=== PATIENT | male | born 1940 | race Caucasian/White ===

== ENCOUNTER 2024-05-29 17:18 | Observation (INO) | payer OTHER ==
[~2024-05-29] VITALS: Ht 177.8 cm; Wt 91.0 kg
[~2024-05-29 17:18] MED LIST: ALDACTONE 25MG25 M1 PO; ALLFEN400 MG PO; COLCRYS0.6 MG PO; DOXYCYCLINE 10100 MG PO; ENTRESTO 97 MG1 EACH PO; IMDUR 60MG60 MG/TAB PO; LASIX 40MG TABL40 MG PO; PREDNISONE20 MG PO; PROAIR DIGIHAL90 MCG IH; SALONPAS1 EACH TP; SPIRIVA RE2.5 MCG/Ac IH; TOPROL XL200 MG PO
[2024-05-29 18:20] LABS: BASO % 0.3 % (0.0-2.0); EOS # 0.1 K/mm3 (0.0-0.7); EOS % 0.7 % (0.0-4.0); GRAN # 11.7 K/mm3 (1.4-6.5); GRAN % 83.5 % (42.2-75.2); HEMATOCRIT 41.5 % (42.0-52.0); HEMOGLOBIN 13.9 g/dl (13.5-18.0); LYMPH # 1.2 K/mm3 (1.2-3.4); LYMPH % 8.8 % (20.0-51.0); MEAN CELL VOLUME 89 fl (80.0-100.0); MEAN CORPUSCULAR HEMOGLOBIN 30 pg (27-31); MEAN CORPUSCULAR HGB CONC 34 g/dl (33.0-37.0); MEAN PLATELET VOLUME 10.4 fl (7.4-10.4); MONO # 0.9 K/mm3 (0.1-0.6); MONO % 6.3 % (1.7-9.3); PLATELET COUNT 165 K/mm3 (130-400); RED BLOOD COUNT 4.65 M/mm3 (4.20-5.60)
[2024-05-29 18:38] LABS: ALBUMIN 3.2 g/dL (3.4-4.8); BILIRUBIN,TOTAL 1.2 mg/dL (0.2-1.2); CALCIUM 8.4 mg/dL (8.4-10.2); CREATININE, serum 1.89 mg/dL (0.72-1.25); POTASSIUM 3.8 mEq/L (3.5-4.5); TOTAL PROTEIN 6.3 g/dl (6.2-8.1)
[2024-05-29] MEDS ORDERED: VITAMIN D31000 IU PO (19:33)
[2024-05-29] MEDS ORDERED: PROSCAR 5MG5 MG PO (19:33)
[2024-05-29] MEDS ORDERED: RT ADVAIR 228 DISKUS IH (19:34)
[2024-05-29] MEDS ORDERED: ANTIVERT 12.512.5 MG PO (19:35)
[2024-05-29] MEDS ORDERED: FLONASEALLERGY NS (19:35)
[2024-05-29] MEDS ORDERED: MELATIN 3 MG-11 TAB PO (19:36)
[2024-05-29] MEDS ORDERED: SINGULAIR 110 MG/TAB PO (19:36)
[2024-05-29] MEDS ORDERED: FLOMAX 0.40.4 MG/CAP PO (19:37)
[2024-05-29] MEDS ORDERED: NORVASC 10MG10 MG PO (19:37)
[2024-05-29] MEDS ORDERED: BREZTRI AEROS10.7 GM IH (19:37)
[2024-05-29] MEDS ORDERED: ASPIRIN E.C. 8181 MG PO (19:38)
[2024-05-29] MEDS ORDERED: LIPITOR 40MG TA40 MG PO (19:39)
[2024-05-29] MEDS ORDERED: LIPITOR20 MG PO (19:39)
[2024-05-29] MEDS ORDERED: ELIQUIS 5MG PO (19:39)
[2024-05-29] MEDS ORDERED: cefTRIAXone 1 G in Water For Injection,Sterile 10 ML IV ONE (19:45)
[2024-05-29] MEDS ORDERED: Furosemide 40 MG/4 ML VIAL IV ONE ×2 (20:00→20:30)
[2024-05-29] MEDS ORDERED: Azithromycin 250 MG TAB PO SCH (20:30)
[2024-05-29] MEDS ORDERED: Albuterol/Ipratropium 3 MG-0.5 MG/3 ML Neb Soln IH PRN (20:30)
[2024-05-29] MEDS ORDERED: cefTRIAXone 1 G in Water For Injection,Sterile 10 ML IV SCH (20:30)
[2024-05-29 20:55] LABS: INR 1.7 (0.8-3.0); PROTHROMBIN TIME 18.4 SECONDS (9.7-12.8)
[2024-05-29 21:00] LABS: C-REACTIVE PROTEIN 8.85 mg/dL (0.00-0.50); MAGNESIUM 2.1 mg/dL (1.6-2.6); PHOSPHOROUS 2.6 mg/dL (2.3-4.7)
[2024-05-29] MEDS ORDERED: Furosemide 40 MG/4 ML VIAL IV SCH (21:00)
[2024-05-29 21:07] LABS: TROPONIN-I 0.035 ng/mL (0.00-0.033)
[2024-05-29 21:20] LABS: THYROID STIMULATING HORMONE 2.473 uIU/mL (0.350-4.940)
[2024-05-30] VITALS (7 sets, daily range): BP systolic 94–137; BP diastolic 55–83; PULSE 61–82; TEMP 97.6–98.7
[2024-05-30] MEDS ORDERED: Albuterol/Ipratropium 3 MG-0.5 MG/3 ML Neb Soln IH SCH (02:00)
[2024-05-30 02:17] LABS: URINE APPEARANCE CLEAR (CLEAR/HAZY); URINE BLOOD NEGATIVE (NEGATIVE); URINE COLOR YELLOW (YELLOW); URINE GLUCOSE 2+ (NEGATIVE); URINE KETONE NEGATIVE (NEGATIVE); URINE NITRATE NEGATIVE (NEGATIVE); URINE PROTEIN(semi-quant) NEGATIVE (NEGATIVE); URINE UROBILINOGEN 0.2 E.U/dL (0.2-1.0)
[2024-05-30 02:30] LABS: COLLECTION METHOD CLEAN CATCH
[2024-05-30 03:34] LABS: BASO % 0.3 % (0.0-2.0); EOS # 0.1 K/mm3 (0.0-0.7); EOS % 0.8 % (0.0-4.0); GRAN # 9.4 K/mm3 (1.4-6.5); GRAN % 79.9 % (42.2-75.2); HEMATOCRIT 39.6 % (42.0-52.0); HEMOGLOBIN 13.8 g/dl (13.5-18.0); LYMPH # 1.6 K/mm3 (1.2-3.4); LYMPH % 13.3 % (20.0-51.0); MEAN CELL VOLUME 86 fl (80.0-100.0); MEAN CORPUSCULAR HEMOGLOBIN 30 pg (27-31); MEAN CORPUSCULAR HGB CONC 35 g/dl (33.0-37.0); MEAN PLATELET VOLUME 10.8 fl (7.4-10.4); MONO # 0.6 K/mm3 (0.1-0.6); MONO % 5.4 % (1.7-9.3); PLATELET COUNT 162 K/mm3 (130-400); RED BLOOD COUNT 4.62 M/mm3 (4.20-5.60); REDCELL DISTRIBUTION WIDTH-CV 14.1 % (11.5-14.5)
[2024-05-30 03:51] LABS: TROPONIN-I 0.041 ng/mL (0.00-0.033)
[2024-05-30 03:57] LABS: CALCIUM 8.9 mg/dL (8.4-10.2); CHOLESTEROL RISK RATIO 3.3; CREATININE, serum 1.67 mg/dL (0.72-1.25); POTASSIUM 3.9 mEq/L (3.5-4.5)
[2024-05-30] MEDS ORDERED: guaiFENesin Oral Soln 200 MG/10 ML UD PO SCH (04:36)
[2024-05-30] MEDS ORDERED: Atorvastatin 40 MG TAB PO SCH (04:38)
[2024-05-30] MEDS ORDERED: Lidocaine 4% Topical Patch TP PRN (04:45)
[2024-05-30] MEDS ORDERED: Benzonatate 100 MG CAP PO SCH (04:51)
[2024-05-30] MEDS ORDERED: methylPREDNISolone Sod Succ 125 MG/2 ML VIAL IV SCH (05:00)
[2024-05-30] MEDS ORDERED: guaiFENesin/Dextromethorphan Oral Soln 200-20 MG/10 ML UD PO PRN (05:00)
[2024-05-30] MEDS ORDERED: methylPREDNISolone Sod Succ 125 MG/2 ML VIAL IV ONE (05:00)
[2024-05-30] MEDS ORDERED: Finasteride 5 MG TAB PO SCH (05:02)
[2024-05-30] MEDS ORDERED: Meclizine 25 MG TAB PO PRN (05:15)
--- NOTE | 2024-05-30 05:17 | NUR ---
Received report from Suri PATRICIA nurse at 2049
--- NOTE | 2024-05-30 05:24 | NUR ---
PT STATES HE DOES WEAR A CPAP AT HOME BUT DOES NOT WANT TO WEAR ONE HERE WHILE HE'S COUGHING.
--- NOTE | 2024-05-30 06:26 | NUR ---
Pt arrived on unit at 0521. Pt walked to the bed with the walker. Pt is alert and able to answer questions. Pt's vitals were stable. Pt has no IVF's running at this time. Physical assessment and intake were done and some of the med rec is done. Pharmacy and allergies were verified. Pt is resting in bed with bed alarms on and call light within reach. Will give report to day shift nurse.
[2024-05-30] MEDS ORDERED: Budesonide Neb Susp 0.5 MG/2 ML AMP IH SCH (07:00)
[2024-05-30] MEDS ORDERED: Isosorbide Mononitrate CR (24-HR) 60 MG TAB PO SCH (07:00)
[2024-05-30] MEDS ORDERED: Formoterol Neb Soln 20 MCG/2 ML UD IH SCH (07:00)
--- NOTE | 2024-05-30 08:00 | NUR ---
PT SITTING UP IN BED. ORIENTED X4. ASSESSMENT COMPLETE. PT DENIES PAIN AT THIS TIME. FREQUENT PRODUCTIVE COUGH NOTED. EDEMA BLE. MORNING MEDS GIVEN. PT REPORTS HARD OF HEARING, DOES NOT WEAR HEARING AIDE TO THE R EAR, L ONLY. NO OTHER COMPLAINTS AT THIS TIME. FALL PRECAUTIONS IN PLACE, CALL LIGHT IN REACH.
[2024-05-30] MEDS ORDERED: Spironolactone 25 MG TAB PO SCH (09:00)
[2024-05-30] MEDS ORDERED: Apixaban 2.5 MG TABLET PO SCH (09:00)
[2024-05-30] MEDS ORDERED: Budesonide/Glycopyrrolate/Formoterol **** subs to Budesonide + Umeclid/Vilant IH SCH (09:00)
[2024-05-30] MEDS ORDERED: Influenza Virus Vaccine, Hi-Dose Triv '24-25 (65 YR+) 0.5 ML SYRINGE IM SCH (09:00)
[2024-05-30] MEDS ORDERED: Montelukast 10 MG TAB PO SCH (09:00)
[2024-05-30] MEDS ORDERED: Fluticasone Nasal 50 MCG/Spray 16 GM BOTTLE NS SCH (09:00)
[2024-05-30] MEDS ORDERED: Umeclidinium/Vilanterol 62.5-25 MCG INHALATION/INHALER IH SCH (09:00)
[2024-05-30] MEDS ORDERED: Cholecalciferol (Vit D3) 25 MCG (1,000 Units) TAB PO SCH (09:00)
[2024-05-30 09:18] LABS: TROPONIN-I 0.031 ng/mL (0.00-0.033)
--- NOTE | 2024-05-30 10:36 | NUR ---
SPOKE TO "Colette" FROM TELE. REPORTED PT HAD 5 BEAT RUN OF VTACH, HR 126, THEN BACK TO HR 70'S WHILE ON THE PHONE. I PROVIDED THIS INFORMATION TO VIA PHONE.
--- NOTE | 2024-05-30 11:57 | NUR ---
dry yard worker met with patient to discuss discharge planning. Patient reports he lives in [place] with his son, daughter in law, Hallie P# [phone], and his grandchildren. Patient reports his is in [place], [place] P# [phone]. PCP is [facility] in [place], Pharmacy is [facility] in [place]. No issues affording medications. Insurance is [employer] and Medicare A and B. Patient reports his DPOA-HC is his , [place]. DME is rollator walker, wheelchair and power chair. Patient reports he does not currently use oxygen but reports to get tired easily when walking. Patient reports he is able to complete his ADLS on his own and he has a vehicle for transportation to and from appointments. Patient would like to return home at time of discharge. Discharge plan: Home
--- NOTE | 2024-05-30 14:59 | NUR ---
Initial visit; Patient thanked Parent Educator for offering Spiritual Care and wishing him a Happy Thanksgiving.
--- NOTE | 2024-05-30 15:30 | NUR ---
SW participated in multidisciplinary team meeting to discuss patient's progress and discharge plan. The discharge plan is for patient to return home. Hospitalist will consult PT/OT. Team members in agreement with this plan. Discharge plan: Home pending PT & OT evaluation
--- NOTE | 2024-05-30 20:00 | NUR ---
Assessment complete. A&Ox3. Denies pain/nausea. Short of breath with coughing-has a dry cough with no production. TELE reporting [id number]. Currently on RA. VS stable. Left FA 20g flushes without difficulty. No s/s of pain or discomfort noted. +1 bilat lower ext edema. Plan of care discussed for this shift to include meds/pain control/monitoring VS/calling for questions/concerns. Verbalizes understanding. Call light in reach. Will monitor.
--- NOTE | 2024-05-30 20:21 | NUR ---
Spoke with VAMSHI Berger about BP 107/67 and two meds due that cause hypotension. TORB to hold metorolol and lasix dose. Will monitor.
[2024-05-30] MEDS ORDERED: cefTRIAXone 2 G in Water For Injection,Sterile 20 ML IV SCH (20:30)
[2024-05-30] MEDS ORDERED: Melatonin 3 MG TAB PO SCH (21:00)
[2024-05-31] VITALS (13 sets, daily range): BP systolic 100–118; BP diastolic 60–72; PULSE 66–94; TEMP 97.3–98.2
--- NOTE | 2024-05-31 00:02 | NUR ---
Patient continues to have a dry cough that is keeping him awake. PRN dose of robitussin given at this time. Will monitor.
--- NOTE | 2024-05-31 02:32 | NUR ---
Patient resting eyes closed. NO s/s of painor discomfort noted. Will monitor.
--- NOTE | 2024-05-31 05:49 | NUR ---
Patient rested off an on this shift. Does have a dry cough that kept him up several times. TELE reporting A Fib-chronic. FR 1500mls enforced. Currently on RA. Still with hypotension even after holding lasix and metoprolol-VAMSHI John aware-will pass on in bedside report. Denies current questions/concerns. Call light in reach. Will monitor.
[2024-05-31 06:47] LABS: BASO % 0.1 % (0.0-2.0); EOS % 0.1 % (0.0-4.0); GRAN # 13.9 K/mm3 (1.4-6.5); GRAN % 86.4 % (42.2-75.2); HEMATOCRIT 37.6 % (42.0-52.0); HEMOGLOBIN 12.6 g/dl (13.5-18.0); LYMPH % 6.4 % (20.0-51.0); MEAN CELL VOLUME 87 fl (80.0-100.0); MEAN CORPUSCULAR HEMOGLOBIN 29 pg (27-31); MEAN CORPUSCULAR HGB CONC 34 g/dl (33.0-37.0); MEAN PLATELET VOLUME 11.4 fl (7.4-10.4); MONO % 6.4 % (1.7-9.3); PLATELET COUNT 176 K/mm3 (130-400); REDCELL DISTRIBUTION WIDTH-CV 14.2 % (11.5-14.5)
[2024-05-31 07:03] LABS: CALCIUM 8.9 mg/dL (8.4-10.2); CREATININE, serum 1.6 mg/dL (0.72-1.25); POTASSIUM 3.9 mEq/L (3.5-4.5)
--- NOTE | 2024-05-31 08:00 | NUR ---
PT SITTING UP IN BED, ORIENTED X4, ASSESSMENT COMPLETE. MORNING MEDS GIVEN. FREQUENT COUGH. REPORTS ANNOYANCE FROM COUGH, DENIES PAIN. NO OTHER COMPLAINTS AT THIS TIME. FALL PRECAUTIONS IN PLACE, CALL LIGHT IN REACH.
[2024-05-31] MEDS ORDERED: dexAMETHasone 10 MG/ML VIAL IV SCH (09:00)
--- NOTE | 2024-05-31 20:30 | NUR ---
Assessment complete A&Ox3. Denies pain/nausea. Short of breath with activity and cough. VS stable. Currently on RA. TELE reporting A Fib-chronic. Noted to have +1 edema to bilat lower ext. Left FA INT flushes without difficulty-no s/s of pain or discomfort noted. Assisted up to shower at this time. Bed linens changed. Back to bed. Tolerated well. Denies current needs. Call light in reach. Will monitor.
[2024-06-01] VITALS (7 sets, daily range): BP systolic 96–110; BP diastolic 60–64; PULSE 56–64; TEMP 97.5–98.4
--- NOTE | 2024-06-01 00:20 | NUR ---
Patient resting eyes closed. NO s/s of pain or discomfort noted. Will monitor.
--- NOTE | 2024-06-01 00:45 | NUR ---
Patient called c/o cough and not being able to sleep due to it. PRN dose of robitussin given. Will monitor.
--- NOTE | 2024-06-01 06:06 | NUR ---
Patient had an uneventful night. Cough seems to be a little better this morning. VS stable. Tele still reporting Irreg-A FIB. Left Forearm INT flushes without difficutly-no s/s of infiltration noted. Currenlty on RA. Denies current questions/concerns. Call light in reach. Will monitor.
[2024-06-01 06:15] LABS: BASO % 0.1 % (0.0-2.0); EOS % 0.1 % (0.0-4.0); GRAN # 12.7 K/mm3 (1.4-6.5); GRAN % 88.4 % (42.2-75.2); HEMATOCRIT 37.7 % (42.0-52.0); LYMPH # 0.9 K/mm3 (1.2-3.4); LYMPH % 6.4 % (20.0-51.0); MEAN CELL VOLUME 87 fl (80.0-100.0); MEAN CORPUSCULAR HEMOGLOBIN 30 pg (27-31); MEAN CORPUSCULAR HGB CONC 35 g/dl (33.0-37.0); MEAN PLATELET VOLUME 11.1 fl (7.4-10.4); MONO # 0.6 K/mm3 (0.1-0.6); MONO % 4.4 % (1.7-9.3); PLATELET COUNT 170 K/mm3 (130-400); RED BLOOD COUNT 4.36 M/mm3 (4.20-5.60)
[2024-06-01 06:29] LABS: CALCIUM 8.7 mg/dL (8.4-10.2); CREATININE, serum 1.59 mg/dL (0.72-1.25); POTASSIUM 4.2 mEq/L (3.5-4.5)
--- NOTE | 2024-06-01 08:00 | NUR ---
PT SITTING AT THE EDGE OF BED, ORIENTED X4, ASSESSMENT COMPLETE. REPORT LOW BACK PAIN, CHRONIC ISSUE. SCHEDULED PAIN MED PROVIDED. PT REPORTS VOIDING WITH SOME DIFFICULTY AT THE START, MILD BURNING WITH VOID. PT REPORTS SENSATION TO VOID ONCE COMPLETE. DENIES AT PAIN, BLOATING OR DISCOMFORT IN BLADDED. ENCOURAGED PT TO CONTINUE DRINKING FLUIDS AND MONITOR COLOR OF OUTPUT. AT THE END OF THIS ASSESSMENT, PT VOIDED 100CC, REPORTS THIS BEING THE BEST VOID YET, DENIED ANY DIFFICULTY OR PAIN WITH OUTPUT. FALL PRECAUTIONS IN PLACE. CALL LIGHT IN REACH. NO OTHER COMPLAINTS AT THIS TIME.
--- NOTE | 2024-06-01 08:00 | NUR ---
PT SITTING UP IN BED, ORIENTED X4, ASSESSMENT COMPLETE. DENIES PAIN. MORNING MEDS GIVEN. FALL PRECAUTIONS IN PLACE. COUGH STILL PRESENT. CALL LIGHT IN REACH.
[2024-06-01] MEDS ORDERED: TESSALON P100 MG/CAP PO (10:30)
[2024-06-01] MEDS ORDERED: OMNICEF 300MG300 MG PO (10:30)
[2024-06-01] MEDS ORDERED: ELIQUIS 2.5 PO (10:35)
[2024-06-01] MEDS ORDERED: MEDROL 4MG DOSPA4 MG PO (10:35)
[2024-06-01] MEDS ORDERED: CHERATUSSIN AC240 ML PO (10:49)
--- NOTE | 2024-06-01 15:52 | NUR ---
DISCUSSED DISCHARGE PAPERWORK WITH PT. DISCUSSED PHARMACY DETAILS AND RX ORDERS. NO QUESTIONS OR CONCERNS AT THIS TIME. PT TRANSFERRED VIA WHEELCHAIR WITH ALL PERSONAL BELONGINGS TO EXIT.
--- NOTE | 2024-06-01 16:18 | NUR ---
CHRISTIANO participated in morning rounds with hospitalist, Dr. Alcocer. Patient will discharge today. Patient reports to Nadja PABON that he does not have the financial means to pay for discharge medications. Patient expressed concerns with [facility] being [facility] and [facility] over the weekend/holiday. CHRISTIANO discussed these concerns with CHRISTIANO Zhang, who approved Medication Vocher in the amount of $57.69 for four medications. CHRISTIANO faxed [facility] a copy of the voucher and list of discharge medications. CHRISTIANO spoke to Laura at [facility] who confirmed receiving order form.
--- NOTE | 2024-06-01 16:42 | NUR ---
SW met with patient to discuss Home Health recommendations. SW provided Medicare.gov options. Patient refused services and feels that his family are able to adequately care for him. SW educated on HH options, should he change his mind and feel it would be necessary. Discharge Plan: Home
== END 2024-06-01 15:50 | disposition home or self-care (01) ==
LOC: COL.ER 17:18 → SURG 05-30 04:27
PROVIDERS: Nurse Practitioner Family; Nurse Practitioner Primary Care; ADMIT Hospitalist
DX: I13.0 Hypertensive heart and chronic kidney disease with heart failure and stage 1 through stage 4 chronic kidney disease, or unspecified chronic kidney disease (principal); I50.41 Acute combined systolic (congestive) and diastolic (congestive) heart failure; J18.9 Pneumonia, unspecified organism; I25.10 Atherosclerotic heart disease of native coronary artery without angina pectoris; I71.21 Aneurysm of the ascending aorta, without rupture; I48.91 Unspecified atrial fibrillation; D72.829 Elevated white blood cell count, unspecified; J44.1 Chronic obstructive pulmonary disease with (acute) exacerbation; R79.89 Other specified abnormal findings of blood chemistry; E78.5 Hyperlipidemia, unspecified; N18.9 Chronic kidney disease, unspecified; G47.33 Obstructive sleep apnea (adult) (pediatric); Z95.2 Presence of prosthetic heart valve; Z95.1 Presence of aortocoronary bypass graft; Z79.899 Other long term (current) drug therapy; Z79.82 Long term (current) use of aspirin; Z86.73 Personal history of transient ischemic attack (TIA), and cerebral infarction without residual deficits; Z85.828 Personal history of other malignant neoplasm of skin; Z87.891 Personal history of nicotine dependence; Z79.01 Long term (current) use of anticoagulants
CPT/HCPCS: G0378; J0696; J1100; J1940; J2919